=== PATIENT | female | born 2000 | race Hispanic/Latino ===

== ENCOUNTER 2024-02-23 07:31 | Emergency (ER) | payer OTHER ==
[~2024-02-23] VITALS: Ht 172.7 cm; Wt 74.2 kg
[2024-02-23] MEDS ORDERED: IBUP200T46 PO (07:48)
[2024-02-23] MEDS ORDERED: ACET325C5 PO (07:48)
[2024-02-23 10:28] LABS: HCG, SERUM QUALITATIVE NEGATIVE (NEGATIVE)
[2024-02-23] MEDS ORDERED: CETI10CA2 PO (11:23)
[2024-02-23] MEDS ORDERED: FLON1SPR NARES (11:23)
[2024-02-23 11:29] VITALS: BP 131/76; TEMP 98.3; O2SAT 95
== END 2024-02-23 11:34 | disposition home or self-care (01) ==
LOC: M ED 07:31
DX: J02.9 Acute pharyngitis, unspecified (principal); B34.9 Viral infection, unspecified; Z79.1 Long term (current) use of non-steroidal anti-inflammatories (NSAID)